=== PATIENT | male | born 1990 | race Caucasian/White ===

== ENCOUNTER 2017-04-07 08:35 | Emergency (ER) | payer SELFPAY ==
[~2017-04-07] VITALS: Ht 162.6 cm; Wt 47.4 kg
[~2017-04-07 08:35] MED LIST: CEPH500T PO; MEDR4PAK3 PO; TRIA.1%T TOP
[2017-04-07 08:40] VITALS: BP 118/73; PULSE 88; RESP 16; TEMP 98.4; O2SAT 97
[2017-04-07] MEDS ORDERED: ELVI1TAB3 PO (08:52)
[2017-04-07] MEDS ORDERED: SODIUM CHLOR 0.9% 1000 ML INJ 1,000 ML IV ONE (09:00)
[2017-04-07] MEDS ORDERED: KETOROLAC TROMETHAMINE 30 MG/ML (IVP) VIAL IV PUSH ONE (09:00)
[2017-04-07 09:19] LABS: BASOPHIL # 0.2 TH/MM3 (0-0.2); BASOPHIL % 2.8 % (0.0-2.0); EOSINOPHIL # 0.2 TH/MM3 (0-0.4); EOSINOPHIL % 2.4 % (0.0-4.0); HEMATOCRIT 47.7 % (39.0-51.0); HEMOGLOBIN 15.9 GM/DL (13.0-17.0); LYMPHOCYTE # 1.6 TH/MM3 (1.0-4.8); MEAN CELL VOLUME 100.1 FL (80.0-100.0); MEAN CORPUSCULAR HEMOGLOBIN 33.4 PG (27.0-34.0); MEAN CORPUSCULAR HGB CONC 33.4 % (32.0-36.0); MEAN PLATELET VOLUME 8.7 FL (7.0-11.0); MONO % 9.3 % (0.0-8.0); MONOCYTE # 0.8 TH/MM3 (0-0.9); NEUT % 67.5 % (16.0-70.0); PLATELET COUNT 213 TH/MM3 (150-450); RED BLOOD COUNT 4.76 MIL/MM3 (4.50-5.90); RED CELL DISTRIBUTION WIDTH 11.8 % (11.6-17.2); WHITE BLOOD COUNT 8.8 TH/MM3 (4.0-11.0)
--- NOTE | 2017-04-07 09:30 | RADRPT ---
EXAM DATE/TIME: 04/07/2017 09:12 [place] COMPARISON: No previous studies available for comparison. INDICATIONS : Short of breath, cough, fever, congestion MEDICAL HISTORY : None. SURGICAL HISTORY : None. ENCOUNTER: Initial ACUITY: 2 days PAIN SCORE: 2/10 LOCATION: Bilateral chest FINDINGS: PA and lateral views of the chest demonstrate the lungs to be symmetrically aerated without evidence of mass, infiltrate or effusion. The cardiomediastinal contours are unremarkable. Osseous structure s are intact. CONCLUSION: No acute disease. Star Bob MD FACR on April 07, 2017 at 9:28 Board Certified Radiologist. This report was verified electronically.
[2017-04-07] MEDS ORDERED: KETOROLAC TROMETHAMINE 60 MG/2 ML (IM) VIAL IM ONE (09:45)
[2017-04-07 09:47] LABS: CALCIUM 8.7 MG/DL (8.5-10.1)
[2017-04-07 09:48] LABS: ALBUMIN 3.6 GM/DL (3.4-5.0); BICARBONATE 29.7 MEQ/L (21.0-32.0); GLUCOSE,RANDOM 92 MG/DL (74-106)
[2017-04-07 09:51] LABS: ALT (GPT) 34 U/L (12-78)
[2017-04-07 09:53] LABS: TOTAL BILIRUBIN ADULT 0.6 MG/DL (0.2-1.0); TOTAL PROTEIN 7.2 GM/DL (6.4-8.2)
[2017-04-07 09:54] LABS: ALKALINE PHOSPHATASE 81 U/L (45-117); AST (GOT) 43 U/L (15-37); CHLORIDE 105 MEQ/L (98-107); GLOMERULAR FILTRATION RATE 115 ML/MIN (>89); SODIUM (NA) 141 MEQ/L (136-145)
--- NOTE | 2017-04-07 09:58 | PD ---
HPI Chief Complaint: Cold / Flu Symptoms Time Seen by Provider: 08:48 Travel History International Travel<30 days: No Contact w/Intl Traveler<30days: No Traveled to known affect area: No History of Present Illness HPI Patient is a 26 year old male, history of HIV, CD4 count 1000, who comes in complaining of flu like symptoms for 2 days. He says he has bodyaches, cough, and congestion. He denies SOB. He says he has felt feverish, but has not had an elevated temperature. He has been taking DayQuil and NyQuil without much relief of his symptoms. He denies chest pain, abdominal pain, nausea or vomiting. He did receive a flu shot this year. PFSH Past Medical History Hx Anticoagulant Therapy: No Bipolar Disorder: Yes Anxiety: Yes Cardiovascular Problems: Yes High Cholesterol: Yes Diabetes: No Diminished Hearing: No Respiratory: No Tetanus Vaccination: < 5 Years Past Surgical History Surgical History: No Previous Surgery Social History Alcohol Use: Yes (OCC) Tobacco Use: Yes (/2 PPD) Substance Use: Yes Allergies-Medications (Allergen,Severity, Reaction): Coded Allergies: No Known Allergies (Verified Adverse Reaction, Unknown, 04/07/17) Reported Meds & Prescriptions Reported Meds & Active Scripts Active Reported Genvoya (Aphhnepxyczm-Etoiehsjop-Jgmizyhgbmcd-Tenofvir) [phone] Mg Tab 1 Tab PO DAILY Review of Systems Except as stated in HPI: all other systems reviewed are Neg General / Constitutional: No: Chills Eyes: No: Blurred Vision HENT: Positive: Congestion, No: Headaches, Lightheadedness Cardiovascular: No: Chest Pain or Discomfort Respiratory: Positive: Cough, No: Shortness of Breath Gastrointestinal: No: Nausea, Vomiting Musculoskeletal: Positive: Myalgias Skin: No Rash, No Change in Pigmentation Neurologic: No: Weakness, Dizziness Physical Exam Narrative GENERAL: Awake and alert, in no acute distress. SKIN: Focused skin assessment warm/dry. No wounds or signs of infection. HEAD: Atraumatic. Normocephalic. EYES: Pupils equal and round. No scleral icterus. No injection or drainage. ENT: Mucous membranes pink and moist. NECK: Trachea midline. No JVD. CARDIOVASCULAR: Regular rate and rhythm. No murmur appreciated. RESPIRATORY: No accessory muscle use. Clear to auscultation. Breath sounds equal bilaterally. GASTROINTESTINAL: Abdomen soft, non-tender, nondistended. MUSCULOSKELETAL: No obvious deformities. No clubbing. No cyanosis. No edema. NEUROLOGICAL: Awake and alert. No obvious cranial nerve deficits. Motor grossly within normal limits. Normal speech. PSYCHIATRIC: Appropriate mood and affect; insight and judgment normal. Data Data Last Documented VS Vital Signs Date Time Temp Pulse Resp B/P (MAP) Pulse Ox O2 Delivery O2 Flow Rate FiO2 04/07/17 08:40 98.4 88 16 118/73 (88) 97 Orders Orders Iv Access Insert/Monitor (04/07/17 08:54) Complete Blood Count With Diff (04/07/17 08:54) Comprehensive Metabolic Panel (04/07/17 08:54) Influenzae A/B Antigen (04/07/17 08:54) Chest, Pa & Lat (04/07/17 ) Sodium Chlor 0.9% 1000 Ml Inj (Ns 1000 M (04/07/17 09:00) Ketorolac Inj (Toradol Inj) (04/07/17 09:00) Ketorolac Inj (Toradol Inj) (04/07/17 09:45) Labs Laboratory Tests Test 04/07/17 09:10 White Blood Count 8.8 TH/MM3 Red Blood Count 4.76 MIL/MM3 Hemoglobin 15.9 GM/DL Hematocrit 47.7 % Mean Corpuscular Volume 100.1 FL Mean Corpuscular Hemoglobin 33.4 PG Mean Corpuscular Hemoglobin Concent 33.4 % Red Cell Distribution Width 11.8 % Platelet Count 213 TH/MM3 Mean Platelet Volume 8.7 FL Neutrophils (%) (Auto) 67.5 % Lymphocytes (%) (Auto) 18.0 % Monocytes (%) (Auto) 9.3 % Eosinophils (%) (Auto) 2.4 % Basophils (%) (Auto) 2.8 % Neutrophils # (Auto) 6.0 TH/MM3 Lymphocytes # (Auto) 1.6 TH/MM3 Monocytes # (Auto) 0.8 TH/MM3 Eosinophils # (Auto) 0.2 TH/MM3 Basophils # (Auto) 0.2 TH/MM3 CBC Comment DIFF FINAL Differential Comment Random Glucose 92 MG/DL Total Protein 7.2 GM/DL Albumin 3.6 GM/DL Calcium Level 8.7 MG/DL Alanine Aminotransferase (ALT/SGPT) 34 U/L Total Bilirubin 0.6 MG/DL Carbon Dioxide Level 29.7 MEQ/L [facility] Medical Decision Making Medical Screen Exam Complete: Yes Emergency Medical Condition: Yes Medical Record Reviewed: Yes Differential Diagnosis Influenza vs viral syndrome vs pneumonia Narrative Course Patient is a 26-year-old male who comes in complaining of body aches with congestion and cough. Exam shows no acute abnormalities. IV established, labs sent. Labs show no acute abnormalities. Chest x-ray performed shows no acute abnormalities. Influenza screen is negative. Given Toradol and fluids. He is advised to continue to take [id number]-[id number] cold medications as needed. Advised to drink plenty of fluids. Advised to take Tylenol or ibuprofen as needed for pain. Advised to return to the ED as needed for any worsening symptoms. Diagnosis Primary Impression: Viral illness Patient Instructions: General Instructions, Viral Syndrome (ED) Additional Instructions: Drink plenty of fluids. Continue mxfu-zlz-djyjbgu cold medications as needed for symptomatic relief. Follow-up with a primary care doctor. Return to the ED as needed for any worsening symptoms. Disposition: 01 DISCHARGE HOME Condition: Stable Janett Magana MD Apr 07, 2017 09:58
[2017-04-07 09:59] LABS: BLOOD UREA NITROGEN 8 MG/DL (7-18)
== END 2017-04-07 10:20 | disposition home or self-care (01) ==
LOC: PHED 08:35
DX: B34.9 Viral infection, unspecified (principal); F31.9 Bipolar disorder, unspecified; F41.9 Anxiety disorder, unspecified; E78.00 Pure hypercholesterolemia, unspecified; F17.200 Nicotine dependence, unspecified, uncomplicated; Z21 Asymptomatic human immunodeficiency virus [HIV] infection status; Z79.899 Other long term (current) drug therapy
CPT/HCPCS: 71020; 80053; 85025; 87804; 96372; 99284; J1885; J7030